=== PATIENT | male | born 1995 | race African-American/Black ===

== ENCOUNTER 2021-07-10 07:19 | Emergency (ER) | payer OTHER ==
[~2021-07-10] VITALS: Ht 175.3 cm; Wt 72.6 kg
[2021-07-10] MEDS ORDERED: KETO10TA2 PO (09:37)
[2021-07-10] MEDS ORDERED: ZITHROMAX500 MG PO (09:37)
== END 2021-07-10 13:58 ==
LOC: ER 07:19
DX: H60.92 Unspecified otitis externa, left ear (principal)